=== PATIENT | female | born 1990 | race Caucasian/White ===

== ENCOUNTER 2022-06-13 19:26 | Emergency (ER) | payer MEDICAID ==
[~2022-06-13] VITALS: Ht 154.9 cm; Wt 96.2 kg
[2022-06-13 19:56] VITALS: BP 144/72
[2022-06-13] MEDS ORDERED: LIDOCAINE 2% 20 ML MDV ONE (21:24)
== END 2022-06-13 22:49 | disposition home or self-care (01) ==
LOC: ER 19:47
DX: S61.011A Laceration without foreign body of right thumb without damage to nail, initial encounter (principal); Z91.02 Food additives allergy status; W26.0XXA Contact with knife, initial encounter; Y93.89 Activity, other specified; Y92.090 Kitchen in other non-institutional residence as the place of occurrence of the external cause; Y99.8 Other external cause status
CPT/HCPCS: 99282; 12001; J3490

== ENCOUNTER 2022-06-22 16:16 | Emergency (ER) | payer MEDICAID ==
[~2022-06-22] VITALS: Ht 154.9 cm; Wt 99.8 kg
[2022-06-22 16:19] VITALS: BP 134/70
--- NOTE | 2022-06-22 16:20 | NUR ---
BIBS FOR L THUMB SUTURE REMOVAL
--- NOTE | 2022-06-22 16:42 | NUR ---
Patient discharged to home in stable condition. Written and verbal after care instructions given. Patient verbalizes understanding of instruction.
== END 2022-06-22 16:43 | disposition home or self-care (01) ==
LOC: ER 16:20
DX: Z48.02 Encounter for removal of sutures (principal); S61.012D Laceration without foreign body of left thumb without damage to nail, subsequent encounter; Z91.018 Allergy to other foods; X58.XXXD Exposure to other specified factors, subsequent encounter